=== PATIENT | female | born 1990 | race Caucasian/White ===

== ENCOUNTER 2019-01-14 09:35 | Emergency (ER) | payer SELFPAY ==
[~2019-01-14] VITALS: Ht 162.6 cm; Wt 64.9 kg
[2019-01-14 09:51] VITALS: BP 117/67
--- NOTE | 2019-01-14 10:12 | NUR ---
PT C/O RT RIB PAIN X1 WEEK. PT REPORTS SORE PAIN AT 9/10 THAT INCREASES WITH COUGHING/DEEP BREATHING/SNEEZING. PT TREATED PAIN WITH NORCO WITH NO RELIEF. PT DENIES TRAUMA, BRUISING, SWELLING OR DEFORMITY. PT DENIES SOB.
[2019-01-14 11:21] LABS: BASOPHILS % (AUTO) 0.6 % (0.0-2.0); EOSINOPHILS # (AUTO) 0.6 K/uL (0-0.4); EOSINOPHILS % (AUTO) 9.3 % (0.0-4.0); HEMATOCRIT 41.1 % (36-48); HEMOGLOBIN 13.9 g/dL (12.0-16.0); LYMPHOCYTES # (AUTO) 1.7 K/uL (2.5-16.5); LYMPHOCYTES % (AUTO) 28.1 % (20.5-51.1); MEAN CORPUSCULAR HEMOGLOBIN 30 pg (27-31); MEAN CORPUSCULAR HGB CONC 34 g/dL (33-37); MEAN CORPUSCULAR VOLUME 88.5 fL (80-94); MONOCYTES # (AUTO) 0.4 K/uL (0.8-1.0); MONOCYTES % (AUTO) 7.1 % (1.7-9.3); NEUTROPHILS # (AUTO) 3.4 K/uL (1.8-7.7); NEUTROPHILS % (AUTO) 54.9 % (42.2-75.2); PLATELET COUNT (AUTO) 265 K/uL (140-450); RED BLOOD CELL COUNT(AUTO) 4.65 MIL/uL (4.20-5.40); RED CELL DISTRIBUTION WIDTH 15.2 % (11.6-13.7); WHITE BLOOD COUNT (AUTO) 6.2 K/uL (4.8-10.8)
[2019-01-14 11:24] LABS: APPEARANCE,URINE CLEAR (CLEAR); BILIRUBIN,URINE NEGATIVE (NEGATIVE); BLOOD, URINE NEGATIVE (NEGATIVE); COLOR,URINE YELLOW (YELLOW); LEUKOCYTE ESTERASE ,URINE NEGATIVE (NEGATIVE); NITRITE, URINE NEGATIVE (NEGATIVE); UGLUCOSE NEGATIVE (NEGATIVE)
[2019-01-14] MEDS ORDERED: KETOROLAC 30 MG/ML VIAL IM ONE (12:10)
[2019-01-14 12:26] LABS: ANION GAP 14.4 (8-16); CARBON DIOXIDE 25.6 mmol/L (21-32); CREATININE 0.7 mg/dL (0.6-1.3)
[2019-01-14 12:31] LABS: ALBUMIN 3.7 g/dL (3.4-5.0); TOTAL BILIRUBIN 0.3 mg/dL (0.0-1.0)
[2019-01-14 12:59] VITALS: BP 117/67
--- NOTE | 2019-01-14 13:00 | NUR ---
Patient discharged with v/s stable. Written and verbal after care instructions given and explained. Patient verbalized understanding. Ambulatory with steady gait. All questions addressed prior to discharge. Advised to follow up with PMD.
== END 2019-01-14 13:00 | disposition home or self-care (01) ==
LOC: MED 09:35
DX: R07.81 Pleurodynia (principal); F12.10 Cannabis abuse, uncomplicated
CPT/HCPCS: 36415; 71101; 80053; 81003; 81025; 83690; 85025; 96372; 99284; J1885

== ENCOUNTER 2019-06-21 19:41 | Emergency (ER) | payer OTHER ==
[~2019-06-21] VITALS: Ht 162.6 cm; Wt 59.0 kg
[2019-06-21 19:46] VITALS: BP 147/71
--- NOTE | 2019-06-21 19:54 | NUR ---
PT AMBULATED TO ER BED 05
--- NOTE | 2019-06-21 19:59 | NUR ---
29Y FEMALE, PRESENTED TO ED, C/O RT BREAST LUMP, WITH REDNESS AND TENDERNESS TO TOUCH 5/10 PAIN X2 WEEKS. PT STATED "IT'S ITCHY AND FEELS LIKE ITS GETTING BIGGER." DENIES ANY TRAUMA, NO FEVER/CHILLS, PT AAOX4, RR EVEN UNLABORED, GCS 15. EDMD MADE AWARE, WILL CONTINUE TO MONITOR CLOSELY. BED LOCKED IN LOWEST POSITION, SIDERAIL UPX1. DENIES PMH
--- NOTE | 2019-06-21 22:20 | NUR ---
DR. HALEY EXAMINING PATIENT AT THIS TIME.
[2019-06-21 22:40] VITALS: BP 130/84
--- NOTE | 2019-06-21 22:40 | NUR ---
Patient discharged with v/s stable. Written and verbal after care instructions given and explained. Patient alert, oriented and verbalized understanding of instructions. Ambulatory with steady gait. All questions addressed prior to discharge. ID band removed. Patient advised to follow up with PMD. Rx of KEFLEX, MOTRIN given. Patient educated on indication of medication including possible reaction and side effects. Opportunity to ask questions provided and answered.
== END 2019-06-21 22:40 | disposition home or self-care (01) ==
LOC: MED 19:41
DX: N61.0 Mastitis without abscess (principal); F17.200 Nicotine dependence, unspecified, uncomplicated
CPT/HCPCS: 99283

== ENCOUNTER 2021-05-29 22:34 | Emergency (ER) | payer MEDICAID, OTHER ==
[~2021-05-29] VITALS: Ht 162.6 cm; Wt 54.4 kg
[2021-05-29 22:53] VITALS: BP 130/79
--- NOTE | 2021-05-29 22:59 | NUR ---
patient ambulated to the bathroom for urine collection
--- NOTE | 2021-05-29 23:40 | NUR ---
CALLED PATIENT BACK WITH NO RESPONSE.
--- NOTE | 2021-05-29 23:57 | NUR ---
PATIENT AMBULATED TO BED 12 WITH STEADY GAIT.
--- NOTE | 2021-05-30 | NUR ---
To bed 12 with c/o ruq pain x5 days. 10/ pain feels like it's bruised and difficult to lay on. Denies n/v/d, fever, c/p. pmh denies nka
[2021-05-30] MEDS ORDERED: MORPHINE SULFATE 2 MG/ML SYR IVP ONE (00:20)
[2021-05-30] MEDS ORDERED: ONDANSETRON 4 MG/2 ML VIAL IVP ONE (00:20)
--- NOTE | 2021-05-30 00:30 | NUR ---
SPEAKING ON CELL PHONE, LAUGHING. PT RATES PAIN 10/10 BUT WISHES TO LEAVE AMA. VERY LOW THRESHOLD TO PAIN. RATED IV START AT 10/10, ALSO RATES ABDOMINAL PAIN 10/10.
--- NOTE | 2021-05-30 00:41 | NUR ---
"i want to leave. i just wanted pain medicine"
[2021-05-30 00:50] VITALS: BP 130/79
--- NOTE | 2021-05-30 00:50 | NUR ---
Patient does not wish to proceed with medical care recommended by JOSEPHINE. Patient given information related to possible complications, up to and including , which could occur as a result of leaving hospital at this time. Patient verbalizes understanding of risks involved leaving against medical advice. Patient has signed AMA form.
[2021-05-30 00:54] LABS: BASOPHILS % (AUTO) 0.5 % (0.0-2.0); EOSINOPHILS # (AUTO) 0.2 K/uL (0-0.4); EOSINOPHILS % (AUTO) 3.3 % (0.0-4.0); HEMOGLOBIN 13.8 g/dL (12.0-16.0); LYMPHOCYTES # (AUTO) 1.9 K/uL (2.5-16.5); LYMPHOCYTES % (AUTO) 31.3 % (20.5-51.1); MEAN CORPUSCULAR HEMOGLOBIN 29 pg (27-31); MEAN CORPUSCULAR HGB CONC 33 g/dL (33-37); MEAN CORPUSCULAR VOLUME 88.6 fL (80-94); MONOCYTES # (AUTO) 0.5 K/uL (0.8-1.0); MONOCYTES % (AUTO) 7.6 % (1.7-9.3); NEUTROPHILS # (AUTO) 3.5 K/uL (1.8-7.7); NEUTROPHILS % (AUTO) 57.3 % (42.2-75.2); PLATELET COUNT (AUTO) 306 K/uL (140-450); RED BLOOD CELL COUNT(AUTO) 4.75 MIL/uL (4.20-5.40); RED CELL DISTRIBUTION WIDTH 15.3 % (11.6-13.7); WHITE BLOOD COUNT (AUTO) 6.1 K/uL (4.8-10.8)
[2021-05-30 01:10] LABS: ALBUMIN 3.7 g/dL (3.4-5.0); ANION GAP 9.3 (8-16); CARBON DIOXIDE 30.5 mmol/L (21-32); CREATININE 0.7 mg/dL (0.6-1.3); POTASSIUM 3.8 mmol/L (3.5-5.1); TOTAL BILIRUBIN 0.2 mg/dL (0.0-1.0)
== END 2021-05-30 00:50 | disposition left against medical advice (07) ==
LOC: MED 22:34
DX: R10.11 Right upper quadrant pain (principal); R51.9 Headache, unspecified; Z91.018 Allergy to other foods
CPT/HCPCS: 36415; 80053; 81002; 81025; 83690; 84703; 85025; 96374; 96375; 99284; J2270; J2405

== ENCOUNTER 2022-09-06 13:14 | Emergency (ER) | payer MEDICAID ==
[~2022-09-06] VITALS: Ht 162.6 cm; Wt 52.6 kg
[2022-09-06 13:40] VITALS: BP 119/71
--- NOTE | 2022-09-06 16:45 | NUR ---
PATIENT LEFT WITHOUT BEING SEEN BY NEHAL PALOMARES. NO FURTHER CARE PROVIDED FOR PATIENT.
--- NOTE | 2022-09-06 16:45 | NUR ---
NO ANSWER IN LOBBY BY NEHAL PALOMARES
--- NOTE | 2022-09-06 17:10 | NUR ---
SECOND NO ANSWER
--- NOTE | 2022-09-06 17:50 | NUR ---
3RD NO ANSWER
== END 2022-09-06 16:45 | disposition left against medical advice (07) ==
LOC: MED 13:14
DX: N64.4 Mastodynia (principal); Z53.21 Procedure and treatment not carried out due to patient leaving prior to being seen by health care provider